=== PATIENT | female | born 1985 | race Caucasian/White ===

== ENCOUNTER 2016-09-03 19:00 | Emergency (ER) | payer OTHER ==
[2016-09-03] MEDS ORDERED: NAPROXEN 250 MG TAB As Ordered ONE (21:23)
--- NOTE | 2016-09-03 23:20 | REPUSA ---
CT of the left hip without contrast Clinical statement: Pain. Fall. Technique: Multiple axial CT images were obtained with 5 mm cuts through the left hip without adminis tration of contrast. Coronal and sagittal reconstructions were also obtained. No comparison is available. Findings: The osseous structures do not demonstrate any fractures or dislocations. The superficial so ft tissues are unremarkable. The joint spaces are well-maintained. There is a small surrounding joint effusion. Impression: No acute fracture or osseous abnormality. The joint space is well maintained. Small surro unding joint effusion.
--- NOTE | 2016-09-03 23:46 | EDDOCDS ---
Physician Documentation [facility] Name: Rocio Lynch Age: 31 yrs Sex: Female : 1985 Arrival Date: 09/03/2016 Time: 19:00 Bed PR Private MD: NIKKI Sosa Disposition: 09/03 23:40 Critical Care: Critical care not applicable. le Disposition: 09/03/16 23:35 Discharged to Home/Self Care. Impression: Pain in left hip. - Condition is Stable. - Discharge Instructions: Arthralgia, Musculoskeletal Pain, Hip Pain. - Prescriptions for [place] 5- 325 mg Oral Tablet - take 1 tablet by ORAL route every 6 hours As needed MDD: 4 tabs; 6 tablet. - Medication Reconciliation, Local Pharmacy Hours form. - Follow up: NIKKI Sosa; When: Call to arrange an appointment; Reason: Recheck today's complaints, Continuance of care. Follow up: Private Physician; When: Call to arrange an appointment; Reason: Recheck today's complaints, Continuance of care. - Problem is new. - Symptoms have improved. - Notes: Return to the ED for any further concerns Historical: - Allergies: no known allergies; - Home Meds: 1. vitamins daily 2. Sertraline 50 mg daily - PMHx: Anxiety; - PSHx: bilateral hip surgery; - Social history: Smoking status: Patient states was never smoker of tobacco. No barriers to communication noted, The patient speaks fluent Puerto Rican, Speaks appropriately for age. - Family history: Not pertinent. - : The pt / caregiver states he / she is not on anticoagulants. Home medication list is obtained from the patient. - Exposure Risk Screening:: None identified. RADIOLOGY RESIDENT: 19:08 LMP 07/2016 srm Vital Signs: 19:01 BP 109 / 70; Pulse 74; Resp 18; Temp 97.0; Pulse Ox 100% ; Weight 48.99 kg / 108 lbs; elp Height 5 ft. 0 in. (152.40 cm); Pain 6/10; 23:43 BP 126 / 77; Pulse 65; Resp 16; Temp 98; Pulse Ox 98% on R/A; ld5 19:01 Body Mass Index 21.09 (48.99 kg, 152.40 cm) elp MDM: 21:21 [facility] Former Order ordered. le 21:21 Naproxen 500 mg PO once; administer with food or milk ordered. le 21:22 Mis [employer] Former Order complete. ajs 21:22 Financial registration complete. gb 21:29 [facility] Payment Agreement was scanned into Dat[employer] and attached to record. gb 21:30 CT-Hip WITHOUT CONTRAST Ordered. EDMS Administered Medications: 21:25 Drug: Naproxen 500 mg [naproxen 250 mg tablet (2 tabs)] Route: PO; ld5 23:44 Follow up: Response: No significant change. ld5 Signatures: Dispatcher MedHost EDMS Crissy Rowley, RN RN srm Dorie Seals, Reg Reg Yoko Bush, JAVIER VILLALBAP Alie Chahal RN RN ld5 Selina Teixeira The chart was reviewed and I authenticate all verbal orders and agree with the evaluation and treatment provided.Attachments: 21:29 [facility] Payment Agreement gb MTDD
--- NOTE | 2016-09-03 23:46 | EDDOCDS ---
Nurse's Notes [facility] Name: Rocio Lynch Age: 31 yrs Sex: Female : 1985 Arrival Date: 09/03/2016 Time: 19:00 Bed PR Private MD: Sheila [facility] [place] Diagnosis: Pain in left hip Presentation: 09/03 19:06 Presenting complaint: Patient states: had left hip surgery before thanksgi and for srm 2 days having pain in hip. no new injury. took a percocet today and it helped. Adult Sepsis Screening: The patient does not have new or worsening altered mentation. Patient's respiratory rate is less than 22. Systolic blood pressure is greater than 100. Patient has a qSOFA score of 0- Negative Sepsis Screen. Suicide/Homicide risk assessment- the patient denies having any suicidal and/or homicidal ideations and does not present with any other emotional, behavioral or mental health complaints. Status: The patient is a dependent. Transition of care: patient was not received from another setting of care. 19:06 Acuity: JEANETTE Level 4 srm 19:06 Method Of Arrival: Walkin/Carried/Asstd srm Triage Assessment: 19:08 General: Appears in no apparent distress, Behavior is appropriate for age, cooperative. srm Pain: Pain currently is 6 out of 10 on a pain scale. HIV screening NA for this visit Offered previously. PLUSH FINISHER: 19:08 [facility] 07/2016 srm Historical: - Allergies: no known allergies; - Home Meds: 1. vitamins daily 2. Sertraline 50 mg daily - PMHx: Anxiety; - PSHx: bilateral hip surgery; - Social history: Smoking status: Patient states was never smoker of tobacco. No barriers to communication noted, The patient speaks fluent Maori, Speaks appropriately for age. - Family history: Not pertinent. - : The pt / caregiver states he / she is not on anticoagulants. Home medication list is obtained from the patient. - Exposure Risk Screening:: None identified. Screenin:43 Screening information is obtained from the patient. Fall risk: No risks identified. ld5 Assistance ADL's: requires no assistance with activities of daily living. Abuse/DV Screen: The patient / caregiver reports he/she is: not in a situation that causes fear, pain or injury. Nutritional screening: No deficits noted. Advance Directives: There is no active DNR order. home support is adequate. Assessment: 21:26 General: Appears in no apparent distress, Behavior is cooperative, pleasant. Pain: ld5 Location: left hip Pain currently is 6 out of 10 on a pain scale. Aggravated by repositioning, weight bearing. Neurological: Level of Consciousness is awake, alert. Respiratory: Airway is patent Respiratory effort is even, unlabored. 23:43 General: Appears in no apparent distress, Behavior is cooperative, pleasant. Pain: Pain ld5 currently is 5 out of 10 on a pain scale. Neurological: Level of Consciousness is awake, alert. Respiratory: Airway is patent. Vital Signs: 19:01 BP 109 / 70; Pulse 74; Resp 18; Temp 97.0; Pulse Ox 100% ; Weight 48.99 kg; Height 5 elp ft. 0 in. (152.40 cm); Pain 6/10; 23:43 BP 126 / 77; Pulse 65; Resp 16; Temp 98; Pulse Ox 98% on R/A; ld5 19:01 Body Mass Index 21.09 (48.99 kg, 152.40 cm) [facility] Vitals: 19:01 Log In Time: September 03, 2016 at 18:59. [facility] ED Course: 19:01 Patient visited by Yojana Cristina PCA. elp 19:01 KIM Sosa is Private Physician. elp 19:01 Patient moved to Waiting elp 19:03 Patient visited by Yojana Cristina PCA. elp 19:03 Patient moved to Pre RCE elp 19:07 Triage Initiated srm 20:42 Patient moved to Triage 2 ld5 21:08 [facility] le 21:12 Patient visited by Yoko Masters FNP. le 21:12 Patient visited by Yoko Masters FNP. le 21:25 Patient moved to TR2 ld5 21:27 Patient visited by Alie Ribeiro RN. ld5 21:29 [facility] Payment Agreement was scanned into Bru[employer] and attached to record. gb 23:33 Patient moved to PR2 / 26 ld5 23:34 NIKKI Sosa is Referral Physician. le 23:43 The patient / caregiver is instructed regarding the plan of care and ED course. Patient ld5 has correct armband on for positive identification. 23:43 No IV's were initiated during this patient's visit. No procedures done that require ld5 assistance. 23:44 CT-Hip WITHOUT CONTRAST Returned. EDMS 23:45 Patient visited by Alie Ribeiro RN. ld5 Administered Medications: 21:25 Drug: Naproxen 500 mg [naproxen 250 mg tablet (2 tabs)] Route: PO; ld5 23:44 Follow up: Response: No significant change. ld5 Order Results: Radiology Order: CT-Hip WITHOUT CONTRAST Test: CT-Hip WITHOUT CONTRAST REASON FOR EXAMINATION: FALL/ PAST SURGERY TO LEFT HIP; ; CT of the left hip without contrast; Clinical statement: Pain. Fall.; Technique: Multiple axial CT images were obtained with 5 mm cuts through the left hip without adminis; tration of contrast. Coronal and sagittal reconstructions were also obtained.; No comparison is available.; Findings: The osseous structures do not demonstrate any fractures or dislocations. The superficial so; ft tissues are unremarkable. The joint spaces are well-maintained. There is a small surrounding joint; effusion.; Impression: No acute fracture or osseous abnormality. The joint space is well maintained. Small surro; unding joint effusion.; ; Outcome: 23:35 Discharge ordered by Provider. mervin 23:43 Discharge Assessment: Patient awake, alert and oriented x 3. No cognitive and/or ld5 functional deficits noted. Patient verbalized understanding of disposition instructions. patient administered narcotics - no. The following High Risk Discharge criteria are identified: None. Discharged to home ambulatory. Condition: stable. Discharge instructions given to patient, Instructed on discharge instructions, follow up and referral plans. medication usage, no driving heavy equipment, Demonstrated understanding of instructions, medications, Pt was receptive of discharge instructions/ teaching. Prescriptions given X 1. CT Study completed. Property :Personal belongings accompany Pt. 23:45 Patient left the ED. ld5 Signatures: Dispatcher MedHost EDAR rCissy Rowley, RN Dorie Castillo, Reg Reg gb Guerrero, Yoko, INSPECTOR BALL POINTS INSPECTOR BALL POINTS Alie Chahal RN RN ld5 Patchen, Yojana, FABRIC WORKER LEADER FABRIC WORKER LEADER elp MTDD
--- NOTE | 2016-09-06 00:46 | EDDOCDS ---
Physician Documentation [facility] Name: Rocio Lynch Age: 31 yrs Sex: Female : 1985 Arrival Date: 09/03/2016 Time: 19:00 Bed PR Private MD: NIKKI Sosa Disposition: 09/03 23:40 Critical Care: Critical care not applicable. le Disposition: 09/03/16 23:35 Discharged to Home/Self Care. Impression: Pain in left hip. - Condition is Stable. - Discharge Instructions: Arthralgia, Musculoskeletal Pain, Hip Pain. - Prescriptions for [place] 5- 325 mg Oral Tablet - take 1 tablet by ORAL route every 6 hours As needed MDD: 4 tabs; 6 tablet. - Medication Reconciliation, Local Pharmacy Hours form. - Follow up: NIKKI Sosa; When: Call to arrange an appointment; Reason: Recheck today's complaints, Continuance of care. Follow up: Private Physician; When: Call to arrange an appointment; Reason: Recheck today's complaints, Continuance of care. - Problem is new. - Symptoms have improved. - Notes: Return to the ED for any further concerns Historical: - Allergies: no known allergies; - Home Meds: 1. vitamins daily 2. Sertraline 50 mg daily - PMHx: Anxiety; - PSHx: bilateral hip surgery; - Social history: Smoking status: Patient states was never smoker of tobacco. No barriers to communication noted, The patient speaks fluent Somali, Speaks appropriately for age. - Family history: Not pertinent. - : The pt / caregiver states he / she is not on anticoagulants. Home medication list is obtained from the patient. - Exposure Risk Screening:: None identified. 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 0 in. (152.40 cm); Pain 6/10; 23:43 BP 126 / 77; Pulse 65; Resp 16; Temp 98; Pulse Ox 98% on R/A; ld5 19:01 Body Mass Index 21.09 (48.99 kg, 152.40 cm) elp MDM: 21:21 [facility] Applications Instructor Order ordered. le 21:21 Naproxen 500 mg PO once; administer with food or milk ordered. le 21:22 Misc Applications Instructor Order complete. ajs 21:22 Financial registration complete. gb 21:29 [facility] Payment Agreement was scanned into Pianpian and attached to record. gb 21:30 CT-Hip WITHOUT CONTRAST Ordered. EDMS 09/04 11:41 T-Sheet-- Draft Copy was scanned into Pianpian and attached to record. gb 11:41 Radiology Report was scanned into [employer] and attached to record. gb Administered Medications: 09/03 21:25 Drug: Naproxen 500 mg [naproxen 250 mg tablet (2 tabs)] Route: PO; ld5 23:44 Follow up: Response: No significant change. ld5 Signatures: Dispatcher MedHost EDMS Crissy Rowley, RN RN srm Dorie Seals, Reg Reg gb Yoko Masters, GREASE MONKEY Alie Trent RN RN ld5 Selina Teixeira The chart was reviewed and I authenticate all verbal orders and agree with the evaluation and treatment provided.Attachments: 21:29 [facility] Payment Agreement gb 09/04 11:41 T-Sheet-- Draft Copy gb Chart Complete MTDD
--- NOTE | 2016-09-06 00:46 | EDDOCDS ---
Nurse's Notes [facility] Name: Rocio Lynch Age: 31 yrs Sex: Female : 1985 Arrival Date: 09/03/2016 Time: 19:00 Bed PR Private MD: Sheila [facility] [place] Diagnosis: Pain in left hip Presentation: 09/03 19:06 Presenting complaint: Patient states: had left hip surgery before thanksgi and for srm 2 days having pain in hip. no new injury. took a percocet today and it helped. Adult Sepsis Screening: The patient does not have new or worsening altered mentation. Patient's respiratory rate is less than 22. Systolic blood pressure is greater than 100. Patient has a qSOFA score of 0- Negative Sepsis Screen. Suicide/Homicide risk assessment- the patient denies having any suicidal and/or homicidal ideations and does not present with any other emotional, behavioral or mental health complaints. Status: The patient is a dependent. Transition of care: patient was not received from another setting of care. 19:06 Acuity: JEANETTE Level 4 srm 19:06 Method Of Arrival: Walkin/Carried/Asstd srm Triage Assessment: 19:08 General: Appears in no apparent distress, Behavior is appropriate for age, cooperative. srm Pain: Pain currently is 6 out of 10 on a pain scale. HIV screening NA for this visit Offered previously. 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 vitamins daily 2. Sertraline 50 mg daily - PMHx: Anxiety; - PSHx: bilateral hip surgery; - Social history: Smoking status: Patient states was never smoker of tobacco. No barriers to communication noted, The patient speaks fluent Indonesian, Speaks appropriately for age. - Family history: Not pertinent. - : The pt / caregiver states he / she is not on anticoagulants. Home medication list is obtained from the patient. - Exposure Risk Screening:: None identified. Screenin:43 Screening information is obtained from the patient. Fall risk: No risks identified. ld5 Assistance ADL's: requires no assistance with activities of daily living. Abuse/DV Screen: The patient / caregiver reports he/she is: not in a situation that causes fear, pain or injury. Nutritional screening: No deficits noted. Advance Directives: There is no active DNR order. home support is adequate. Assessment: 21:26 General: Appears in no apparent distress, Behavior is cooperative, pleasant. Pain: ld5 Location: left hip Pain currently is 6 out of 10 on a pain scale. Aggravated by repositioning, weight bearing. Neurological: Level of Consciousness is awake, alert. Respiratory: Airway is patent Respiratory effort is even, unlabored. 23:43 General: Appears in no apparent distress, Behavior is cooperative, pleasant. Pain: Pain ld5 currently is 5 out of 10 on a pain scale. Neurological: Level of Consciousness is awake, alert. Respiratory: Airway is patent. Vital Signs: 19:01 BP 109 / 70; Pulse 74; Resp 18; Temp 97.0; Pulse Ox 100% ; Weight 48.99 kg; Height 5 elp ft. 0 in. (152.40 cm); Pain 6/10; 23:43 BP 126 / 77; Pulse 65; Resp 16; Temp 98; Pulse Ox 98% on R/A; ld5 19:01 Body Mass Index 21.09 (48.99 kg, 152.40 cm) [facility] Vitals: 19:01 Log In Time: September 03, 2016 at 18:59. [facility] ED Course: 19:01 Patient visited by Yojana Cristina PCA. elp 19:01 KIM Sosa is Private Physician. elp 19:01 Patient moved to Waiting elp 19:03 Patient visited by Yojana Cristina PCA. elp 19:03 Patient moved to Pre RCE elp 19:07 Triage Initiated srm 20:42 Patient moved to Triage 2 ld5 21:08 [facility] le 21:12 Patient visited by Yoko Masters FNP. le 21:12 Patient visited by Yoko Masters FNP. le 21:25 Patient moved to TR2 ld5 21:27 Patient visited by Alie Ribeiro RN. ld5 21:29 [facility] [place] [place] Payment Agreement was scanned into BlooBox and attached to record. gb 23:33 Patient moved to PR2 / 26 ld5 23:34 NIKKI Sosa is Referral Physician. le 23:43 The patient / caregiver is instructed regarding the plan of care and ED course. Patient ld5 has correct armband on for positive identification. 23:43 No IV's were initiated during this patient's visit. No procedures done that require ld5 assistance. 23:44 CT-Hip WITHOUT CONTRAST Returned. EDMS 23:45 Patient visited by Alie Ribeiro RN. ld5 09/04 11:41 T-Sheet-- Draft Copy was scanned into BlooBox and attached to record. 11:41 Radiology Report was scanned into JAMF Software[employer] and attached to record. gb Administered Medications: 09/03 21:25 Drug: Naproxen 500 mg [naproxen 250 mg tablet (2 tabs)] Route: PO; ld5 23:44 Follow up: Response: No significant change. ld5 Order Results: Radiology Order: CT-Hip WITHOUT CONTRAST Test: CT-Hip WITHOUT CONTRAST REASON FOR EXAMINATION: FALL/ PAST SURGERY TO LEFT HIP; ; CT of the left hip without contrast; Clinical statement: Pain. Fall.; Technique: Multiple axial CT images were obtained with 5 mm cuts through the left hip without adminis; tration of contrast. Coronal and sagittal reconstructions were also obtained.; No comparison is available.; Findings: The osseous structures do not demonstrate any fractures or dislocations. The superficial so; ft tissues are unremarkable. The joint spaces are well-maintained. There is a small surrounding joint; effusion.; Impression: No acute fracture or osseous abnormality. The joint space is well maintained. Small surro; unding joint effusion.; ; Outcome: 23:35 Discharge ordered by Provider. le 23:43 Discharge Assessment: Patient awake, alert and oriented x 3. No cognitive and/or ld5 functional deficits noted. Patient verbalized understanding of disposition instructions. patient administered narcotics - no. The following High Risk Discharge criteria are identified: None. Discharged to home ambulatory. Condition: stable. Discharge instructions given to patient, Instructed on discharge instructions, follow up and referral plans. medication usage, no driving heavy equipment, Demonstrated understanding of instructions, medications, Pt was receptive of discharge instructions/ teaching. Prescriptions given X 1. CT Study completed. Property :Personal belongings accompany Pt. 23:45 Patient left the ED. ld5 Signatures: Dispatcher MedHo EDOK Crissy Rowley RN RN srm Barnhardt, Gloria, Reg Reg Yoko Bush, MANAGER PROJECT MANAGER PROJECT Alie Chahal,RN RN ld5 Patchen, Yojana, SPRING REPAIRER HELPER HAND SPRING REPAIRER HELPER HAND elp Chart Complete MTDD
--- NOTE | 2016-09-06 00:46 | EDDOCDS ---
Physician Documentation [facility] Name: Rocio Lynch Age: 31 yrs Sex: Female : 1985 Arrival Date: 09/03/2016 Time: 19:00 Bed PR Private MD: NIKKI Sosa Disposition: 09/03 23:40 Critical Care: Critical care not applicable. le Disposition: 09/03/16 23:35 Discharged to Home/Self Care. Impression: Pain in left hip. - Condition is Stable. - Discharge Instructions: Arthralgia, Musculoskeletal Pain, Hip Pain. - Prescriptions for [place] 5- 325 mg Oral Tablet - take 1 tablet by ORAL route every 6 hours As needed MDD: 4 tabs; 6 tablet. - Medication Reconciliation, Local Pharmacy Hours form. - Follow up: NIKKI Sosa; When: Call to arrange an appointment; Reason: Recheck today's complaints, Continuance of care. Follow up: Private Physician; When: Call to arrange an appointment; Reason: Recheck today's complaints, Continuance of care. - Problem is new. - Symptoms have improved. - Notes: Return to the ED for any further concerns Historical: - Allergies: no known allergies; - Home Meds: 1. vitamins daily 2. Sertraline 50 mg daily - PMHx: Anxiety; - PSHx: bilateral hip surgery; - Social history: Smoking status: Patient states was never smoker of tobacco. No barriers to communication noted, The patient speaks fluent Malian, Speaks appropriately for age. - Family history: Not pertinent. - : The pt / caregiver states he / she is not on anticoagulants. Home medication list is obtained from the patient. - Exposure Risk Screening:: None identified. TANKROOM TENDER: 19:08 LMP 07/2016 srm Vital Signs: 19:01 BP 109 / 70; Pulse 74; Resp 18; Temp 97.0; Pulse Ox 100% ; Weight 48.99 kg / 108 lbs; elp Height 5 ft. 0 in. (152.40 cm); Pain 6/10; 23:43 BP 126 / 77; Pulse 65; Resp 16; Temp 98; Pulse Ox 98% on R/A; ld5 19:01 Body Mass Index 21.09 (48.99 kg, 152.40 cm) elp MDM: 21:21 [facility] Hostess Cashier Order ordered. le 21:21 Naproxen 500 mg PO once; administer with food or milk ordered. le 21:22 Misc Hostess Cashier Order complete. ajs 21:22 Financial registration complete. gb 21:29 [facility] Payment Agreement was scanned into Need and attached to record. gb 21:30 CT-Hip WITHOUT CONTRAST Ordered. EDMS 09/04 11:41 T-Sheet-- Draft Copy was scanned into Need and attached to record. gb 11:41 Radiology Report was scanned into [employer] and attached to record. gb Administered Medications: 09/03 21:25 Drug: Naproxen 500 mg [naproxen 250 mg tablet (2 tabs)] Route: PO; ld5 23:44 Follow up: Response: No significant change. ld5 Signatures: Dispatcher MedHost EDMS Crissy Rowley, RN RN srm Dorie Seals, Reg Reg gb Yoko Masters, INSTRUCTIONAL TECHNOLOGY DIRECTOR Alie Trent RN RN ld5 Selina Teixeira The chart was reviewed and I authenticate all verbal orders and agree with the evaluation and treatment provided.Attachments: 21:29 [facility] Payment Agreement gb 09/04 11:41 T-Sheet-- Draft Copy gb Chart Complete MTDD
== END 2016-09-03 23:45 | disposition home or self-care (01) ==
LOC: M ED 19:00
DX: S73.102A Unspecified sprain of left hip, initial encounter (principal); X58.XXXA Exposure to other specified factors, initial encounter; Y92.89 Other specified places as the place of occurrence of the external cause; Y93.89 Activity, other specified; Y99.8 Other external cause status; F41.9 Anxiety disorder, unspecified; Z79.899 Other long term (current) drug therapy

== ENCOUNTER → 2016-10-01 | Outpatient (CLI) | payer OTHER ==
--- NOTE | 2016-10-02 23:47 | ECWPNPC ---
PATIENT NAME: KHADRA IVERSON : 1985 GENDER: FEMALE VISIT DATE: 10/01/2016 DISCHARGE DATE: 10/01/16 1226 VISIT LOCKED DATE TIME: PHYSICIAN: DENISE COOPER RESOURCE: DENISE COOPER REASON FOR APPOINTMENT 1. LEFT HIP PAIN HISTORY OF PRESENT ILLNESS NEW PATIENT CONSULT: 31 Y/O FEMALE REFERRED BY [facility] FOR PERSISTENT LEFT HIP PAIN S/P LEFT HIP ARTHROSCOPY 06-26-17.REPORTING INCREASED PAIN AND STIFFNESS POST PROCEDURE.PATIENT REGRETS HAVING IT DONE.REPORTING INCREASED PAIN AND STIFFNESS GOING UP AND DOWN STAIRS.PAIN IS AGRREVATED BY PROLONGED SITTING.REPORTING MUSCLE SPASM PAIN ECSPECIALLY AT NIGHT AND POOR SLEEP.WAS USING PERCOCET 5/325 UP TO 4 PER DAY X ONE MONTH POST PROCEDURE THEN 2 PER DAY UP UNTIL 4 DAYS AGO SHE STOPPED IT IT WASNT HELPING.THEY WILL BE MOVING TO [place] IN 3 WEEKS.RATING PAIN VAS 4/10. WHEN DID YOUR PAIN FIRST START? . BRIEFLY DESCRIBE HOW YOUR PAIN STARTED? . HOW DOES YOUR PAIN CHANGE WITH TIME? . DOES YOUR PAIN AWAKEN YOU FROM SLEEP? . HOW MANY HOURS OF SLEEP DO YOU NORMALLY GET? . ANY DIAGNOSTIC TESTING? . FACILITY WHERE TESTS WERE DONE? ____. PAIN TREATMENT TREATMENT YES CANCER HAVE YOU EVER HAD ANY TYPE OF CANCER?NO NO. PAIN SCREENING: PATIENT HAS A COMPLAINT OF ACUTE OR CHRONIC PAIN YES FALL RISK SCREENING: SCREENING :NO FALLS IN THE PAST YEAR MORENO INVENTORY: QUESTIONNAIRE ASSESSEDYES SCORE VALUE CALCULATED YES SCORE:0 CURRENT MEDICATIONS TAKING ZOLOFT 50 MG TABLET 1 TABLET ORALLY ONCE A DAY TAKING MULTIVITAMIN ADULT TAKING VITAMIN D 1000 UNIT TABLET 1 TABLET ORALLY ONCE A DAY NOT-TAKING VIGAMOX 0.5 % SOLUTION 1 GTT OU OPHTHALMIC THREE TIMES A DAY MEDICATION LIST REVIEWED AND RECONCILED WITH THE PATIENT PAST MEDICAL HISTORY ANXIETY MIGRAINES BREAST FEEDING: YES SURGICAL HISTORY RIGHT HIP ARTHOSXOPIC SURGERY 2005 REPEAT SURGERY TO RIGHT HIP 2009 LEFT HIP ARTHROSCOPIC SUGERY FAMILY HISTORY FATHER: UNKNOWN MOTHER: ALIVE MOTHER HAS HX OF BREAST CA. SOCIAL HISTORY GENERAL: PAIN CLINIC PFS, CLERGY, PUBLIC HEALTH REFERRALS CLERGY REFERRAL NEEDED?NO WAS THE PROVIDER NOTIFIED OF ANY PERTINENT INFO?NO PFS REFERRAL NEEDED?NO PUBLIC HEALTH REFERRAL NEEDED?NO PSYCHOLOGICAL HX TREATMENTNO ALCOHOL OR DRUG TREATMENTNO PATIENT: ____. ADVANCED DIRECTIVES HEALTH CARE PROXY?NO POWER OF SCRAP HOOKER?NO SCREENING/ASSESSMENT TOOL NUTRITION ASSESSEDYES ARE YOU ON ANY SPECIAL DIET?NO ANY SIGNIFICANT CHANGES RELATED TO EATING, WEIGHT GAIN/LOSS, OR BOWEL HABITS?NO IF YES, IS YOUR PRIMARY CARE PROVIDER AWARE OF THIS?NO SPECIAL NEEDS LEVEL OF CARE? SELF, GLASSES: NO, CONTACTS: NO, HEARING AIDS: NO, DENTURES: NO, WALKER: NO, CANE: NO, WHEELCHAIR: NO, REFERRALS NEEDED: NO. TOBACCO USE ARE YOU A:NONSMOKER CAFFEINE CAFFEINE USE?NO RECREATIONAL DRUG USE DRUG USE?NO HOSPITALIZATION/MAJOR DIAGNOSTIC PROCEDURE OF CHILDREN 2012 & 2014 REVIEW OF SYSTEMS CONSTITUTIONAL: ANY CHANGE IN YOUR MEDICAL CONDITION? NO . RECENT ILLNESS DENIES . CHILLS NO . FEVER NO . WEIGHT LOSS DENIES . INFECTION: DO YOU HAVE NEW INFECTIONS? NO . DO YOU HAVE HISTORY OF MRSA? NO . MUSCULOSKELETAL: ANY NEW PATTERNS OF PAIN OR NUMBNESS? NO . SYTEMIC LUPUS NO . GASTROENTEROLOGY: ANY NEW CHANGE IN BOWEL CONTROL? NO . BARRETTS ESOPHAGUS NO . CIRRHOSIS NO . HEPATITIS NO . LIVER FAILURE NO . ACID REFLUX NO . UNEXPLAINED WEIGHT LOSS NO . GENITOURINARY: ANY NEW CHANGE IN BLADDER CONTROL? NO . IS THERE A CHANCE YOU COULD BE ? NO . HEMATOLOGY/LYMPH: DO YOU TAKE ANY BLOOD THINNERS? (FOR EXAMPLE- COUMADIN, PLAVIX, AGGRENOX, PLATEL, PRADAXA, OR XARELTO) NO . WHEN WAS YOUR LAST DOSE? DATE: TIME: . LOW PLATELET COUNT NO . SICKLE CELL DISEASE NO . VON WILLIEBRANDS NO . FACTOR V LEIDEN NO . THALLASEMIA NO . ANEMIA NO . EASY BRUISING NO . NEUROLOGY: HAVE YOU FALLEN IN THE PAST 6 MONTHS? YES ON ICE AFTER SURGERY CAME INTO OUR ER . ANY NEW EXTREMITY NUMBNESS OR WEAKNESS? NO . HEAD INJURY NO . DEMENTIA NO . CEREBRAL PALSY NO . MULTIPLE SCLEROSIS NO . DIZZINESS NO . HEADACHE NO . STROKES NO . VERTIGO NO . CARDIOLOGY: DO YOU HAVE A PACEMAKER OR DEFIBRILLATOR? NO . ANGINA NO . HEART ATTACK NO . HEART SURGERY NO . CONGESTIVE HEART FAILURE/FLUID OVERLOAD NO . CHEST PAIN NO, DENIES . HIGH BLOOD PRESSURE NO . IRREGULAR HEART BEAT NO . SHORTNESS OF BREATH DENIES . RESPIRATORY: HAVE YOU BEEN SICK IN THE PAST WEEK? NO . FEVER NO . FLU LIKE SYMPTOMS? NO . CPAP NO . BYPAP NO . ASTHMA NO . EMPHYSEMA NO . CHRONIC LUNG DISEASES NO . SHORTNESS OF BREATH ON EXERTION NO . DO YOU USE ANY TYPE OF TOBACCO (SMOKE, SMOKELESS, CHEW)? NO . COUGH NO, DENIES . SHORTNESS OF BREATH DENIES . SNORING NO . INTEGUMENTARY: DO YOU HAVE ANY RASHES OR OPEN SORES? NO . ALLERGIC/IMMUNO: ARE YOU ALLERGIC TO SHELLFISH OR IV DYE? NO . ANY NEW ALLERGIES? NO . PSYCHIATRIC: DO YOU HAVE THOUGHTS OF HURTING YOURSELF OR SOMEONE ELSE? NO . ARE YOU ABUSED, NEGLECTED, OR IN AN UNSAFE ENVIRONMENT? NO . ENDOCRINOLOGY: ARE YOU DIABETIC? NO . THYROID DISORDER NO . OTHER: DO YOU NEED ANY PRESCRIPTIONS? NO . IF YES, PLEASE LIST: ____ . ANY NEW PROBLEMS WITH YOUR MEDICATIONS? NO . WHEN DID YOU LAST EAT? ____ . WHEN DID YOU LAST DRINK? ____ . WHAT DID YOU LAST DRINK? ____ . NAME OF PERSON DRIVING YOU HOME? ____ . DO YOU HAVE ANY OTHER QUESTIONS OR CONCERNS NO . REVIEWED BY: PROVIDER: DENISE HERRERA . VITAL SIGNS WT 109.8 LBS, HT 5'0", BMI 21.44 INDEX, BP 105/70 MM HG, HR 76 /MIN, RR 16 /MIN, TEMP 97.3 F, OXYGEN SAT % 98%, NA INITIALS SC 11:33, REVIEWED BY: RACHEL. EXAMINATION GENERAL EXAMINATION: LUNGS:LUNG SOUNDS ARE CLEAR. HEART:HEART RATE REGULAR. MUSCULOSKELETAL:*, MUSCLE STRENGTH TESTING 5/5 BILATERAL LOWER EXTREMITIES.SPECIFIC POINT TENDERNESS OVER LEFT SIJ.+JOSIE TEST LEFT LEG.DTR-LOWER EXT.2/4 BILAT.. DIAGNOSTIC: . ASSESSMENTS SACROILIAC JOINT PAIN - M53.3 (PRIMARY) LEFT HIP PAIN - M25.552 TREATMENT SACROILIAC JOINT PAIN START MOBIC TABLET, 7.5 MG, 1 TABLET, ORALLY, BID, 30 DAY(S), 60 TABLET, REFILLS 1 START CYCLOBENZAPRINE HCL TABLET, 5 MG, 1 TABLET, ORALLY, THREE TIMES A DAY PRN, 30 DAY(S), 30, REFILLS 1 INJECTION ANESTHETIC SACROILIAC JOINTBARBER,DENISE 10/01/2016 12:17:11 PM > LEFT SIJ NOTES: STOP NAPROXEN. PROCEDURE CODES FA211 ESTABILISHED PATIENT [facility] CHARGE DISPOSITION & COMMUNICATION FOLLOW UP 1WK POST (REASON: LEFT SIJ VINCE PT. MOVING IN 3 WEEKS) ELECTRONICALLY SIGNED BY JAVIER MANTILLA ON 10/02/2016 AT 01:48 PM EST DISCLAIMER : THIS IS A VISIT SUMMARY EXTRACTED FROM THE [employer] CHART. IT IS NOT A COPY OF THE [employer] PROGRESS NOTE. TICO
== END ==
LOC: M PAIN 11:20
PROVIDERS: ATTEND Nurse Practitioner Family
DX: G89.29 Other chronic pain (principal); M53.3 Sacrococcygeal disorders, not elsewhere classified; M25.552 Pain in left hip; F41.9 Anxiety disorder, unspecified; Z79.899 Other long term (current) drug therapy; Z86.69 Personal history of other diseases of the nervous system and sense organs; Z96.642 Presence of left artificial hip joint